=== PATIENT | female | born 1940 | race Caucasian/White ===

== ENCOUNTER 2016-10-29 11:00 | Emergency (ER) | payer MEDICARE ==
[~2016-10-29] VITALS: Ht 157.5 cm; Wt 74.8 kg
[~2016-10-29 11:00] MED LIST: LOTRIMIN 0.1% C15 GM TP; NOMEDS XX
--- OUTSIDE RECORDS SUMMARY | 2016-10-29 11:07 | External Medical Summary Rpt ---
Author Author [facility] Organization [employer] Address Unknown Phone Unavailable Purpose Continuity of Care Document - through 2016
--- OUTSIDE RECORDS SUMMARY | 2016-10-29 11:07 | External Medical Summary Rpt ---
Author Author , Organization [employer] Address Unknown Phone Unavailable Purpose Continuity of Care Document - through 2016
--- OUTSIDE RECORDS SUMMARY | 2016-10-29 11:08 | External Medical Summary Rpt ---
Demographics Preferred Language Thai Marital Status Unknown Confucianist Affiliation Unknown Race Unknown Ethnic Group Unknown Author Author , Organization [employer] Address Unknown Phone Unavailable Purpose Continuity of Care Document - through 2016 Immunization No patient found.
--- OUTSIDE RECORDS SUMMARY | 2016-10-29 11:08 | External Medical Summary Rpt ---
Demographics Preferred Language Kinyarwanda Marital Status Unknown Zoroastrian Affiliation Unknown Race Unknown Ethnic Group Unknown Author Author , Organization [employer] Address Unknown Phone Unavailable Purpose Continuity of Care Document - through 2016 Immunization No patient found.
--- NOTE | 2016-10-29 11:24 | Emergency Room Report ---
History of Present Illness Time Seen by 1105 Presenting Problem in Triage Pt arrived:Walked Presenting Problem:PT C/O INCREASED SOA FOR THE PAST COUPLE OF WEEKS ANDTHIS MORNING WHILE SHE WAS FEEDING HER ANIMALS SHE STARTED HAVING SHARP PAINS IN HER RIBS UNDER HER BREAST. THEY HAVE BEEN COMING AND GOING. 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 N Clinical Suspician of Infection? N Mental Status: 1 - Regular (Normal Baseline) Sepsis Risk:Low Sepsis Risk Have you (or family members/close friends) recently traveled outside the [place]? N If Yes, where/when: Have you had exposure to infectious disease within the past month? N TB? Other? Specify: Patient has had pleuritic pain bilaterally for the past several weeks, but was feeding animals at 0830 when she had acute onset of jaw pressure and took aspirin, then drove herself to the ED. The pain has self resolved. She denies known CAD and had a stress test in [place] many years ago that was normal. She denies cough or edema; no recent travel, not a smoker. FH noncontributory, and reports a history of HTN, denies DM, denies hyperlipidemia. She is ADHD, not on medication. ALLERGIES Coded Allergies: No Known Allergies (10/29/16) Home Medications Reported Medications No Home Medications (NO HOME MEDICATIONS) 1 EACH XX ONCE History Medical History General CAD? No Angina: No [place]: No Hypertension? No Hyperlipidemia? No CHF? No DVT? No PE? No COPD? No Asthma? No Anemia? No GERD? No Gastric ulcers? No GI Bleed? No Hernia? No Thyroid Problems? No Hypothyroidism? No CVA? No Seizures? No Diabetes? No Renal Insuffiency? No End Stage Renal Disease? No UTI? No Stones? No BPH? No GB Disease: No Nephritic Syndrome? No Asplenia? No Hepatitis? No Sickle Cell Disease? No Arthritis? No Migraines? No Cataracts? No Glaucoma? No MRSA? No HIV? No TB? No Anxiety? No Depression? No Cancer? No More? No Immunization Hx DT/Tetanus Unknown Surgical Hx Previous Surgery?Y Appendix FRANCISCA Gallbladd COLONOSCOPY Social History Smoking Hx Smoker: Never Smoker Tobacco: No Alcohol Alcohol: No Review of Systems All Other Systems Reviewed and Negative Respiratory see HPI Cardiovascular see HPI Physical Exam Vital Signs Vital Signs Date Time Temp Pulse Resp B/P Pulse O2 O2 Flow FiO2 Ox Delivery Rate 10/29 1328 98.4 85 16 165/99 99 10/29 1226 98.4 95 16 166/96 98 10/29 1101 98.4 98 16 198/87 98 General Appearance normal appearance, WD/WN, no apparent distress Eye Exam - bilateral eye normal exam, bilateral eye PERRL, bilateral eye EOMI Neck normal inspection, non-tender, supple, full range of motion Respiratory Status Yes: trachea midline, chest symmetrical, non tender chest. No: respiratory distress, tender on palpation, use of accessory muscles, pain on inspiration, pain on expiration, productive cough, non productive cough. Lung Sounds bilateral: normal breath sounds, lungs clear. 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 No Results/Orders Laboratory Tests 10/29/16 1300: Troponin I < 0.02 10/29/16 1120: Lipase 218 10/29/16 1120: Sodium 141, Potassium 3.9, Chloride 106, Carbon Dioxide 26, BUN 16, Creatinine 0.7, Estimated Creat Clear 81, Estimated GFR (MDRD) 81, Glucose 94, Calcium 9.0, Total Bilirubin 0.3, AST 12 L, ALT 23, Alkaline Phosphatase 71, Creatine Kinase 138, CK-MB (CK-2) Rel Index 2.3, CK and CKMB Interp 3.2, Troponin I < 0.02, Total Protein 7.0, Albumin 3.4, Globulin 3.6 H, Albumin/Globulin Ratio 0.9 L, D-Dimer 397, WBC 5.1, RBC 4.47, Hgb 13.2, Hct 39.3, MCV 87.9, RDW 13.0, Plt Count 235, MPV 7.6, Gran % 53.4, Gran # 2.7, Lymphocytes % 35.9, Monocytes % 5.6 , Eosinophils % 4.1, Basophils % 0.9, Lymphocytes # 1.8, Monocytes # 0.3, Eosinophils # 0.2, Basophils # 0.1, PUBS MCHC 33.6, MCH 29.5 Current Medication Orders Sig/Meliton Start time Last Medication Dose Route Stop Time Status Admin Sodium Chloride 10 ML PRN PRN 10/29 1115 AC IV 10/30 1105 Orders Procedure Date/time Status TROPONIN I 10/29 1320 Complete LIPASE 10/29 1118 Complete D-DIMER 10/29 1118 Complete 12 LEAD EKG-ERASTO (INITIAL) 10/29 1110 Active ELECTROCARDIOGRAM REQUEST 10/29 1105 Active CHEST(2 VIEWS-NOT PORTABLE) 10/29 1105 Active IV SALINE LOCK 10/29 1105 Active CBC WITH AUTO DIFF 10/29 1105 Complete CARDIAC ENZYMES 10/29 1105 Complete CHEM 12 PROFILE 10/29 1105 Complete CM/EKG CM/EKG EKG rate, NSR, rhythm, no evid. of ischemic chgs, no ectopy, normal QRS, normal WV, normal EKG (83) XRAY/CT/US XRAY/CT/US XRAY chest XR interpretation by reviewed by me Xray Results normal/NAD, no infiltrates, normal heart size, normal lung inflation jadiel Progress ED Progress Notes Date 10/29/16 Time 1359 Comment No pain at discharge, second troponin normal, stable for d/c. Departure Departure Time of Disposition 1359 Disposition DC Home or Self Care(routine) Clinical Impression Primary Impression: Atypical chest pain Condition STABLE Referrals Alecia GARCÍA, Gary MALAGON MD, AASHISH Patient Instructions DI for Atypical Chest Pain Additional Instructions Recommend daily aspirin, 81 mg, and close follow up with family doctor of choice , see list, as well as with technical instructor course developer of choice, Dr. ZENDEJAS or Dr. Alston. Discharge Counseling Counseled pt/family regarding diagnosis, test results, medications/RX, home care, follow up needs ED Critical Care Critical Care No at [id number]
[2016-10-29 11:34] LABS: HEMOGLOBIN 13.2 g/dL (12.2-16.2); LYMPH # 1.8 K/mm3 (0.7-4.5); LYMPH % 35.9 % (10-50.0)
[2016-10-29 11:55] LABS: BUN 16 mg/dL (7-18)
[2016-10-29 11:56] LABS: GFR (ESTIMATED) 81 ML/MIN (59-)
[2016-10-29 14:14] VITALS: BP 165/99
--- NOTE | 2016-10-29 18:59 | RADIOLOGY REPORT PS360 ---
CHEST(2 VIEWS-NOT PORTABLE) COMPARISON: None HISTORY: S pressure TECHNIQUE: PA and lateral chest FINDINGS: The lung brown are well expanded and appear clear of infiltrate. The cardiac silhouette and vascularity are normal and there is no pleural fluid. Is minor dextroscoliotic curvature of the thoracic spine with mild multilevel degenerative changes noted. IMPRESSION: Nonacute chest findings
== END 2016-10-29 14:15 | disposition home or self-care (01) ==
LOC: ER 11:00
PROVIDERS: Emergency Medicine
DX: R07.89 Other chest pain (principal); R06.02 Shortness of breath